=== PATIENT | female | born 1960 | race Caucasian/White ===

== ENCOUNTER 2023-01-18 08:47 | Outpatient (CLI) | payer BC, SELFPAY ==
--- NOTE | 2023-01-18 09:15 | CRLHL7_ITS ---
For Patients: As a result of the Century Cures Act, medical imaging exams and procedure reports are released immediately into your electronic medical record. You may view this report before your referring provider. If you have questions, please contact your health care provider. BILATERAL SCREENING MAMMOGRAM WITH COMPUTER-AIDED DETECTION AND TOMOSYNTHESIS TECHNIQUE: CC, MLO and Implant displaced views were obtained. These mammographic images have been obtained using full-field digital technique. These mammographic images were interpreted with the benefit of computer-aided detection. Breast Tomosynthesis was used in this interpretation. COMPARISON FILM: 03/05/2017. FINDINGS: There are scattered areas of fibroglandular density IMPRESSION: There is no radiographic evidence for malignancy. ASSESSMENT: BI-RADS Category 2: Benign RECOMMENDATION: Routine screening mammogram in 1 year. A lay language report of this examination will be provided to the patient. Apolinar Sanders M.D. Diagnostic/Nuclear Medicine Radiologist [email or web address] ADRIANO/Dictated by: Apolinar Sanders MD @ 01/18/2023 10:01:00 AM (Electronically Signed)
== END 2023-01-18 08:48 | disposition home or self-care (01) ==
LOC: MAMMO 08:49
PROVIDERS: PCP Family Medicine; Visit Provider Physician Assistant Medical
DX: Z12.31 Encounter for screening mammogram for malignant neoplasm of breast (principal)
CPT/HCPCS: 77063; 77067

== ENCOUNTER 2023-01-18 09:30 | Outpatient (CLI) | payer BC, SELFPAY ==
--- NOTE | 2023-01-18 06:47 | W.ANESCHARGE ---
Anesthesia Charges Start Date/Time Anesthesia Start Date: 01/18/23 Anesthesia Start Time: 10:18 Stop Date/Time Anesthesia Stop Date: 01/18/23 Anesthesia Stop Time: 10:39
--- NOTE | 2023-01-18 06:47 | PM.ANHP ---
HPI - Pre-Anesthesia History of Present Illness Time Seen by Provider: 09:59 Date Seen: 01/18/23 Date of service: 01/18/23 Reason for visit: colonoscopy Narrative HPI: here for screening colonoscopy has had some blood in stools Review of Systems Status of ROS Reports: 6 or more systems reviewed and unremarkable except as noted in History and below PFS PFS Medical History History of cellulitis ?Z87.2 - Personal history of diseases of the skin and subcutaneous tissue (ICD-10) History of colonic polyps ?Z86.010 - Personal history of colonic polyps (ICD-10) Personal history of colonic polyps ?Z86.010 - Personal history of colonic polyps (ICD-10) Surgical History H/O left knee surgery (~08/2022) ?Z98.890 - Other specified postprocedural states (ICD-10) Status post left foot surgery ?Z98.890 - Other specified postprocedural states (ICD-10) History of endoscopy ?Z98.890 - Other specified postprocedural states (ICD-10) History of colonoscopy with polypectomy ?Z98.890 - Other specified postprocedural states (ICD-10) ?Z86.010 - Personal history of colonic polyps (ICD-10) History of surgery on upper extremity ?Z98.890 - Other specified postprocedural states (ICD-10) History of endoscopy ?Z98.890 - Other specified postprocedural states (ICD-10) History of colonoscopy with polypectomy ?Z98.890 - Other specified postprocedural states (ICD-10) ?Z86.010 - Personal history of colonic polyps (ICD-10) Family History Grandfather Coronary artery disease Stroke Grandmother Coronary artery disease Mother Smoker Obesity High blood pressure Sister Obesity Daughter Diabetes Social History Narrative: Does not use illicit drugs Nonsmoker Occasional alcohol consumption Smoking Status: Never smoker Little interest or pleasure in doing things: not at all Meds Home Medications and Allergies Home Medications Medication Instructions Recorded Confirmed Type Probiotic PO 09/27/22 01/02/23 History multivitamin PO 09/27/22 01/02/23 History Allergies Allergy/AdvReac Type Severity Reaction Status Date / Time amoxicillin Allergy Unknown Verified 01/02/23 15:02 Exam Const Documenting provider has reviewed patient's vital signs: yes Common normals: no apparent distress, oriented x3, healthy appearing, alert and well nourished General appearance: cooperative and comfortable Orientation/consciousness: Yes awake HENMT Common normals: normocephalic Head and scalp: normocephalic Neck & C-Spine Common normals: full ROM Chest Chest: symmetrical chest wall rise Resp Common normals: normal respiratory effort, no retractions, no use of accessory muscles and clear to auscultation bilaterally Auscultation: clear to auscultation bilaterally Cardio Common normals: regular rate, regular rhythm, S1 normal heart sound, S2 normal heart sound and no murmurs Rate: regular rate Rhythm: regular rhythm Heart sounds: S1 normal and S2 normal Neuro Common normals: oriented x3 Sensorium/orientation: awake and alert Assessment and Plan Assessment and plan (1) Bloody stools: Problem comment: Patient had colonoscopy 04/26/2017; due for repeat in 5 years Status: Acute Plan ok to proceed with sedation for colonoscopy
--- NOTE | 2023-01-18 10:41 | W.ANESCHARGE ---
Anesthesia Charges Start Date/Time Anesthesia Start Date: 01/18/23 Anesthesia Start Time: 10:18 Stop Date/Time Anesthesia Stop Date: 01/18/23 Anesthesia Stop Time: 10:39
== END 2023-01-18 09:31 | disposition home or self-care (01) ==
LOC: OP CLINIC 09:30
PROVIDERS: PCP Physician Assistant Medical; Visit Provider Internal Medicine
DX: Z12.11 Encounter for screening for malignant neoplasm of colon (principal); K62.1 Rectal polyp; Z86.010 Personal history of colon polyps
CPT/HCPCS: 45380; 811; 88305; J2704

== ENCOUNTER 2024-08-13 14:52 | Outpatient (CLI) | payer OTHER, SELFPAY | END 2024-08-13 14:53 | disposition home or self-care (01) | LOC: LKVREF 14:56 | PROVIDERS: PCP Physician Assistant Medical; Visit Provider Physician Assistant Medical | DX: R10.9 Unspecified abdominal pain (principal); R63.4 Abnormal weight loss | CPT/HCPCS: 80053; 86304; 87086 ==

== ENCOUNTER 2024-08-14 14:25 | Outpatient (CLI) | payer OTHER, SELFPAY ==
--- NOTE | 2024-08-14 15:00 | CRLHL7_ITS ---
For Patients: As a result of the Century Cures Act, medical imaging exams and procedure reports are released immediately into your electronic medical record. You may view this report before your referring provider. If you have questions, please contact your health care provider. INDICATION: Low pelvic pain for 6 months weight loss TECHNIQUE: CT abdomen and pelvis with 75 mL Isovue 370 contrast. COMPARISON: None. FINDINGS: Lower chest: Unremarkable. Liver: Normal in size and attenuation. No suspicious masses. Gallbladder and bile ducts: No stones or inflammation. No biliary dilatation. Pancreas: Unremarkable. No mass or inflammation. Spleen: Normal in size. No masses. Adrenal glands: Normal in size. No nodules. Kidneys: Normal in size. No suspicious masses, stones, or hydronephrosis. GI tract: Unremarkable. Normal in caliber. No sign of mass or inflammation. Normal appendix. Vasculature: Abdominal aorta is normal in caliber. Lymph nodes: Mildly enlarged pelvic lymph nodes example posterior pelvic node measuring 8 millimeter short axis multiple additional prominent/mildly enlarged nodes in the pelvis Mildly prominent mesenteric nodes example 7 millimeter short axis mesenteric node sample 8 millimeters short axis right mesenteric node on Peritoneum/Abdominal Wall: Unremarkable. No sign of mass or infiltration. No free air or significant free fluid. Pelvis: Urinary bladder incompletely distended with wall thickening. Large complex cystic process in the pelvis measuring approximately 8.5 by 7.3 centimeters with multiple septations this appears to extend into the bilateral adnexa with complex adnexal partially cystic lesions. Bones: Unremarkable for age. IMPRESSION: 1. Complex cystic process in the pelvis measuring approximately 8.5 x 7.2 centimeters that appears to extend into the bilateral adnexa with bilateral complex cystic adnexal lesions. Findings suspicious for gynecologic/ovarian malignancy. Multiple prominent pelvic lymph nodes. Slightly prominent mesenteric nodes Gynecology consultation recommended. Please note that all CT scans at this facility use dose modulation, iterative reconstruction, and/or weight-based dosing when appropriate to reduce radiation dose to as low as reasonably achievable. Dictated by Randee Esparza MD @ 08/15/2024 8:08:27 AM (Electronically Signed)
== END 2024-08-14 14:26 | disposition home or self-care (01) ==
LOC: CT 14:26
PROVIDERS: PCP Physician Assistant Medical; Visit Provider Physician Assistant Medical
DX: R10.2 Pelvic and perineal pain (principal); N94.89 Other specified conditions associated with female genital organs and menstrual cycle; R59.9 Enlarged lymph nodes, unspecified; R63.4 Abnormal weight loss
CPT/HCPCS: 74177; Q9967

== ENCOUNTER 2024-09-18 13:10 | Outpatient (CLI) | payer OTHER, SELFPAY | END 2024-09-18 13:11 | disposition home or self-care (01) | LOC: NFLDREF 09-20 04:51 | PROVIDERS: PCP Physician Assistant Medical; Referring Provider Physician Assistant Medical; Visit Provider Physician Assistant Medical | DX: Z01.84 Encounter for antibody response examination (principal) | CPT/HCPCS: 86703; 86803; 87340 ==

== ENCOUNTER 2024-10-15 08:21 | Outpatient (RCR) | payer OTHER, SELFPAY | END 2025-04-13 23:59 | disposition home or self-care (01) | LOC: CCIC 08:21 | PROVIDERS: PCP Physician Assistant Medical; Visit Provider Internal Medicine Hematology & Oncology | DX: C56.3 Malignant neoplasm of bilateral ovaries (principal) | CPT/HCPCS: 99202; 99205 ==